=== PATIENT | female | born 1965 | race Caucasian/White ===

== ENCOUNTER 2016-12-10 20:37 | Emergency (ER) | payer BC, OTHER ==
--- NOTE | 2016-12-10 20:56 | Emergency Department Record ---
History of Present Illness - General Chief Complaint: Cough Stated Complaint: DARVIN Time Seen by Provider: 12/10/16 20:50 Source: Patient Mode of Arrival: Ambulatory Limitations: No limitations - History of Present Illness Initial Comments: 51 yo female presents with congestion and cough. The onset was Monday. She has green nasal drainage, green sputum. No history of prior pneumonia. She has had prior sinusitis. She is not improving with Mucinex. No abdominal pain , vomiting or diarrhea. She quit smoking 8 years ago. MD Complaint: Cough Onset/Timin -: Days(s) Severity: Mild Severity scale (1-10): 8 Consistency: Constant Improves With: Nothing Associated Symptoms: Cough, Hoarseness, Nasal congestion - Related Data Home Medications Medication Instructions Recorded Confirmed Last Taken Insulin Glargine,Hum.rec.anlog 80 units SQ QAM 12/10/16 12/10/16 Unknown [Toujeo Solostar] Insulin Glulisine [Apidra Solostar] 15 units SQ ASDIR 12/10/16 12/10/16 Unknown Linagliptin [Tradjenta] 5 mg PO DAILY 12/10/16 12/10/16 Unknown Metformin HCl [Metformin HCl] 1 tab PO QPM 12/10/16 12/10/16 Unknown Metformin HCl [Metformin HCl] 2 tab PO DAILY 12/10/16 12/10/16 Unknown Previous Rx's Medication Instructions Recorded Benzonatate [Tessalon Perle] 100 mg PO Q6H #20 capsule 12/10/16 Levofloxacin [Levaquin] 750 mg PO DAILY #9 tab 12/10/16 Allergies Allergy/AdvReac Type Severity Reaction Status Date / Time clarithromycin [From Biaxin] Allergy PT UNSURE Verified 12/10/16 20:46 OF REACTION penicillin V Allergy RASH Verified 12/10/16 20:46 sulfamethoxazole Allergy PT UNSURE Verified 12/10/16 20:46 [From Bactrim] OF REACTION trimethoprim [From Bactrim] Allergy PT UNSURE Verified 12/10/16 20:46 OF REACTION Travel Screening - Travel/Exposure Within Last 30 Days Have you traveled within the last 30 days?: No - Travel/Exposure Within Last Year Have you traveled outside the [place] in the last year?: No - Additonal Travel Details Have you been exposed to anyone with a communicable illness?: No - Travel Symptoms Symptom Screening: None Review of Systems Constitutional: Reports: Fever. Denies: Chills, Malaise, Weakness Eyes: Denies: Eye discharge, Eye pain ENT: Reports: Congestion, Ear pain, Throat pain Respiratory: Reports: Cough. Denies: Dyspnea, Hemoptysis, Stridor, Wheezes Cardiovascular: Denies: Chest pain, Palpitations, Syncope Endocrine: Reports: Fatigue Gastrointestinal: Denies: Abdominal pain, Diarrhea, Nausea, Vomiting Genitourinary: Denies: Dysuria, Urgency Musculoskeletal: Denies: Arthralgia, Back pain, Myalgia, Neck pain Skin: Denies: Bruising, Change in color Neurological: Denies: Confusion, Headache Psychiatric: Denies: Anxiety Hematological/Lymphatic: Reports: Swollen glands. Denies: Blood Clots, Easy bleeding, Easy bruising Past Medical History - SOCIAL HISTORY Smoking Status: Never smoker Alcohol Use: None Drug Use: None - RESPIRATORY Hx Respiratory Disorders: No - CARDIOVASCULAR Hx Cardio Disorders: No - NEURO Hx Neuro Disorders: No - GI Hx GI Disorders: No - Hx Genitourinary Disorders: No - ENDOCRINE Hx Endocrine Disorders: Yes Hx Diabetes: Yes - MUSCULOSKELETAL Hx Musculoskeletal Disorders: No - PSYCH Hx Psych Problems: No - HEMATOLOGY/ONCOLOGY Hx Hematology/Oncology Disorders: No Family Medical History Any Significant Family History?: No Physical Exam - General General Appearance: Alert, Oriented x3, Cooperative, No acute distress Limitations: No limitations - Head Head exam: Normal inspection - Eye Eye exam: Normal appearance. negative: Conjunctival injection, Periorbital swelling - ENT ENT exam: Normal exam, Mucous membranes moist, Normal orophraynx, TM's normal bilaterally Ear exam: Normal external inspection. negative: External canal tenderness Nasal Exam: Discharge (clear with nasal mucosal edema), Sinus tenderness. negative: Active bleeding Mouth exam: Normal external inspection, Tongue normal Teeth exam: Normal inspection. negative: Dental caries Throat exam: Tonsillar erythema. negative: Tonsillomegaly, Tonsillar exudate, R peritonsillar mass, L peritonsillar mass - Neck Neck exam: Normal inspection, Full ROM, Lymphadenopathy (mild anterior cervical) . negative: Tenderness - Respiratory Respiratory exam: Normal lung sounds bilaterally, Rhonchi. negative: Respiratory distress - Cardiovascular Cardiovascular Exam: Regular rate, Normal rhythm, Normal heart sounds - GI/Abdominal GI/Abdominal exam: Soft - Rectal Rectal exam: Deferred - exam: Deferred - Extremities Extremities exam: Normal inspection, Full ROM, Normal capillary refill. negative: Tenderness - Back Back exam: Reports: Normal inspection, Full ROM. Denies: Muscle spasm, Rash noted, Tenderness - Neurological Neurological exam: Alert, Normal gait, Oriented X3 - Psychiatric Psychiatric exam: Normal affect, Normal mood - Skin Skin exam: Dry, Intact, Normal color, Warm Course Vital Signs 12/10/16 20:38 Temperature 99.4 F Pulse Rate 117 H Respiratory 26 H Rate Blood Pressure 152/96 Pulse Ox 99 - Reevaluation(s) Reevaluation #1: The XR was reviewed No definite large infiltrate DC on oral antibioitcs with instructions for close follow up and return if worse 12/10/16 21:31 Reevaluation #2: HR still elevated at this time She states her urine is dark and she did not drink much today due to the sore throat She agrees to hydration and labs prior to DC 12/10/16 21:50 Reevaluation #3: The labs were reviewed Glucose was 444. She ate spaghetti dinner and did not take her evening medications The HCO3 is 18 but the AG is normal pH and ketones ordered. She will take her fast acting insulin according to her sliding scale 12/10/16 22:26 Reevaluation #4: The glucose is improved, the pH is normal and the acetone is negative. 12/10/16 23:16 Medical Decision Making - Lab Data Result diagrams: 12/10/16 21:55 12/10/16 21:55 Disposition Disposition: Discharge Clinical Impression: Bronchitis, Hyperglycemia Sinusitis Qualifiers: Sinusitis location: maxillary Chronicity: acute Recurrence: not specified as recurrent Qualified Code(s): J01.00 - Acute maxillary sinusitis, unspecified Disposition: Home, Self-Care Condition: (1) Good Instructions: Sinusitis (ED), Acute Bronchitis (ED) Additional Instructions: Return to the ER for a recheck if worse, fevers, short of breath or any new symptoms or concerns Call your doctor for a recheck first of the week Prescriptions: Benzonatate [Tessalon Perle] 100 mg PO Q6H #20 capsule Levofloxacin [Levaquin] 750 mg PO DAILY #9 tab Forms: Patient Portal Access, Return to Work/School Time of Disposition: 21:33
[2016-12-10] MEDS ORDERED: LEVOFLOXACIN 500 MG TABLET PO ONE (20:57)
[2016-12-10] MEDS ORDERED: BENZONATATE 100 MG CAPSULE PO ONE (20:57)
[2016-12-10] MEDS ORDERED: 0.9 % SODIUM CHLORIDE 1,000 ML BAG IV ONE ×2 (21:50→22:20)
[2016-12-10 22:00] LABS: BASO % 1.1 % (0-6); EOS % 6.1 % (0-6); GRAN % 60.5 % (47-80); HEMATOCRIT 46.6 % (35.0-47.0); HEMOGLOBIN 15.9 gm/dl (11.6-16.0); LYMPH % 23.4 % (16-45); MEAN CELL VOLUME 87.4 fl (81-97); MEAN CORPUSCULAR HEMOGLOBIN 29.8 pg (27-33); MEAN CORPUSCULAR HGB CONC 34.1 g/dl (32-36); MEAN PLATELET VOLUME 9.2 fl (7.4-10.4); MONO % 8.9 % (0-9); PLATELET COUNT 167 K/uL (130-400); RED BLOOD COUNT 5.33 M/uL (3.80-5.40); RED CELL DISTRIBUTION WIDTH 12.7 % (11.5-14.5); WHITE BLOOD COUNT W/O DIFF 9.5 K/uL (4.2-12.2)
[2016-12-10 22:16] LABS: ANION GAP 13.2 (7-16); BLOOD UREA NITROGEN 18 mg/dL (7-17); CARBON DIOXIDE 18.8 mmol/L (22-30); CREATININE 0.6 mg/dL (0.52-1.04); EST GLOMERULAR FILTRATION RATE > 60 ml/min; GLUCOSE,RANDOM 444 mg/dL (70-110)
[2016-12-10] MEDS ORDERED: ACETAMINOPHEN 500 MG TABLET PO ONE (22:19)
[2016-12-10] MEDS ORDERED: HUMULIN R 100 UNIT/ML VIAL SQ ONE (22:20)
[2016-12-10 23:06] LABS: ACETONE,SERUM NEGATIVE (NEGATIVE)
--- NOTE | 2016-12-12 14:49 | RADIOLOGY REPORT ---
EXAM: CHEST, TWO VIEWS HISTORY: COUGH WITH GREEN SPUTUM. TECHNIQUE: PA and lateral views of the chest were obtained. Comparison: None. FINDINGS: The heart size is normal. The lungs appear expanded with no acute infiltrate seen. Spurring in the spine. No pleural effusion or pneumothorax evident. IMPRESSION: SOME HYPERTROPHIC SPURRING IN THE SPINE. NO ACUTE INFILTRATE EVIDENT. JOB NUMBER: [id number] MTDD
== END 2016-12-10 23:46 | disposition home or self-care (01) ==
LOC: ER 20:37
DX: J20.9 Acute bronchitis, unspecified (principal); J01.00 Acute maxillary sinusitis, unspecified; R06.00 Dyspnea, unspecified; E11.65 Type 2 diabetes mellitus with hyperglycemia; Z79.4 Long term (current) use of insulin; Z87.891 Personal history of nicotine dependence
CPT/HCPCS: 36416; 71020; 80048; 82009; 82800; 82948; 85025; 96372; 99284; J7030

== ENCOUNTER 2017-03-27 07:40 | Day surgery (SDC) | payer BC ==
[2017-03-27] MEDS ORDERED: PROPOFOL 10 MG/ML VIAL IV ONE (14:00)
[2017-03-27] MEDS ORDERED: LIDOCAINE 2% MDV (20MG/ML) 20ML VIAL IV ONE (14:00)
--- NOTE | 2017-03-28 14:30 | Operative Note ---
DATE OF SURGERY: 03/27/2017 OPERATION: COLONOSCOPY to the cecum with cold biopsy forceps polypectomy x3 and cold snare polypectomy x2. INDICATION: Colorectal cancer screening. ANESTHESIA: Intravenous sedation was administered by the department of anesthesiology and included Diprivan titrated to effect. PROCEDURE: Following informed consent from this alert individual including a discussion of the risks and benefits of the procedure and an opportunity for the patient to ask questions, the patient was in the left lateral decubitus position. A digital rectal examination was performed. No abnormalities were noted. Following this, the Olympus [id number] video colonoscope was inserted into the rectum without resistance. The rectal mucosa had a normal appearance with normal folds and distensibility. The colonoscope was advanced up through the colon to the level of the cecum without much difficulty. Throughout the bowel the mucosa appeared normal, the folds were normal, and the bowel was fairly well distensible. The cecum was defined by noting the appendiceal orifice and ileocecal valve. The colon preparation was good. There was some retained liquid noted, which was suctioned vigorously through the colonoscope. From the base of the cecum, retroflexion was accomplished following air insufflation. No abnormalities were noted. The endoscope was then withdrawn. No changes were appreciated until the sigmoid colon was reached. Within the sigmoid colon, there were 3 diminutive polyps noted measuring 3 mm in size. Each was removed with biopsy forceps. There were 2 additional slightly larger polyps in the rectum each measuring 4-5 mm in size, and these were removed with cold snare polypectomy and suctioned through the endoscope into a collection trap. The endoscope was then withdrawn after retroflexion accomplished. No additional changes were appreciated. The patient tolerated the procedure well and was returned to recovery area in stable condition. IMPRESSION: 1. Three sigmoid colon polyps measuring 3 mm in size removed with biopsy forceps. 2. Two rectal polyps measuring 4-5 mm in size removed with cold snare polypectomy. RECOMMENDATIONS: Further recommendations will be forthcoming pending results of pathology obtained today. Followup will be with Dr. Olivarez. As always, thank you for allowing me to participate in the care of your patient. CC: Dr. Sher ROBLES
== END 2017-03-27 10:30 | disposition home or self-care (01) ==
LOC: HOP 07:40
PROVIDERS: ATTEND Internal Medicine Gastroenterology
DX: Z12.11 Encounter for screening for malignant neoplasm of colon (principal); K63.5 Polyp of colon; K62.1 Rectal polyp; E11.9 Type 2 diabetes mellitus without complications; Z79.4 Long term (current) use of insulin